=== PATIENT | female | born 1950 | race Caucasian/White ===

== ENCOUNTER 2022-01-13 12:31 | Outpatient (CLI) | payer MEDICARE ==
[2022-01-13 14:27] LABS: Hemoglobin 12.9 g/dL (12.0-15.5); Mean Corpuscular HGB CONC 33.2 g/dL (32.0-36.0); Mean Corpuscular Hemoglobin 29.2 pg (27.0-33.0); Mean Platelet Volume 9.9 fl (7.4-10.4); Platelet Count 206 10x3/uL (150-450); RBC Distribution Width 11.9 % (11.5-14.5); Red Blood Cell (RBC) Count 4.42 10x6/uL (3.90-5.03); White Blood Cell (WBC) Count 9.1 10x3/uL (3.5-10.5)
[2022-01-13 14:41] LABS: INR-International Normal Ratio 0.9; PTT 24.8 sec (22.0-33.0); Prothrombin Time 9.8 sec (9.5-12.1)
[2022-01-13 14:46] LABS: Anion Gap 15 mmol/L (10-20); BUN (Urea Nitrogen) 11 mg/dL (9.8-20.1); Calc. Creatinine Clearance 0 mL/min (70-130); Calcium 9.1 mg/dL (7.8-10.44); Carbon Dioxide 25 mmol/L (23-31); Chloride 105 mmol/L (98-107); Estimated GFR 94; Glucose 87 mg/dL (80-115); Potassium 3.6 mmol/L (3.5-5.1); Sodium 141 mmol/L (136-145)
== END 2022-01-13 12:32 | disposition home or self-care (01) ==
LOC: LABBT 12:31
PROVIDERS: ATTEND Urology
DX: Z01.818 Encounter for other preprocedural examination (principal); Z20.822 Contact with and (suspected) exposure to COVID-19
CPT/HCPCS: 80048; 85027; 85610; 85730; 87811; 93005; 93010

== ENCOUNTER 2022-01-15 09:25 | Day surgery (SDC) | payer MEDICARE ==
[2022-01-14 10:35] VITALS: BMI 31.1
[2022-01-15] MEDS ORDERED: Iopamidol 30 ML ONE (13:02)
[2022-01-15] MEDS ORDERED: Levofloxacin 500 mg/D5W 100 ml Premix Bag ONE (13:10)
[2022-01-15] MEDS ORDERED: Ondansetron PF 4 MG/2 ML Vial ONE (13:22)
[2022-01-15] MEDS ORDERED: Esmolol 100 MG/10 ML VIAL ONE (13:22)
[2022-01-15] MEDS ORDERED: Dexamethasone 20 MG/5 ML VIAL ONE (13:22)
[2022-01-15] MEDS ORDERED: PROPOFOL 200 MG/20 ML VIAL ONE (13:22)
[2022-01-15] MEDS ORDERED: Lidocaine 1% MPF 2 ML VIAL ONE (13:22)
[2022-01-15] MEDS ORDERED: Rocuronium Bromide 10 MG/ML (10ML VIAL) ONE (13:22)
[2022-01-15] MEDS ORDERED: ePHEDrine 50 MG/ML VIAL ONE (13:22)
[2022-01-15] MEDS ORDERED: SUGAMMADEX SODIUM 200 MG/2 ML VIAL ONE (13:53)
[2022-01-15] MEDS ORDERED: Phenazopyridine HCl 100 MG TAB ONE (14:15)
[2022-01-15] MEDS ORDERED: Oxybutynin 5 MG TAB ONE (14:15)
[2022-01-15] MEDS ORDERED: fentaNYL Citrate/PF 100 MCG/2 ML SYRINGE ONE (14:24)
== END 2022-01-15 15:35 | disposition home or self-care (01) ==
LOC: SDC 09:25
PROVIDERS: ATTEND Urology
PROC: 0TC78ZZ Extirpation of Matter from Left Ureter, Via Natural or Artificial Opening Endoscopic (ICD-10-PCS; principal; 2022-01-15)
PROC: 0T778DZ Dilation of Left Ureter with Intraluminal Device, Via Natural or Artificial Opening Endoscopic (ICD-10-PCS; 2022-01-15)
DX: N20.1 Calculus of ureter (principal); M79.7 Fibromyalgia; E78.5 Hyperlipidemia, unspecified; I10 Essential (primary) hypertension; Z79.2 Long term (current) use of antibiotics; Z79.899 Other long term (current) drug therapy
CPT/HCPCS: 74018; 74420; 82365; 88300; C1769; C2617; J1100; J1956; J2405; J2704; J3490; Q9967